=== PATIENT | female | born 1990 | race Caucasian/White ===

== ENCOUNTER 2016-07-27 07:43 | Emergency (ER) | payer SELFPAY ==
[2016-07-27 08:24] LABS: HEMOGLOBIN 11.7 gm/dl (12.3-15.3); RED BLOOD COUNT 4.73 M/UL (4.00-5.10); WHITE BLOOD COUNT 7.9 K/UL (4.5-11.0)
[2016-07-27 08:43] LABS: BUN/CREATININE RATIO 13 (0-10)
== END 2016-07-27 08:49 | disposition left against medical advice (07) ==
LOC: ER1 07:43
PROVIDERS: Emergency Medicine
DX: R06.2 Wheezing (principal); R06.02 Shortness of breath; F17.210 Nicotine dependence, cigarettes, uncomplicated
CPT/HCPCS: 80053; 82550; 82553; 83874; 84484; 84703; 85025; 93005; 94664; 96374; 99285; J2920; Q9963